=== PATIENT | male | born 1980 | race Caucasian/White ===

== ENCOUNTER 2025-02-07 16:35 | Inpatient (IN) | payer BC ==
[2025-02-07 17:09] LABS: BASOPHILS ABSOLUTE AUTO 0.2 x10-3/uL (0.0-0.3); BASOPHILS PERCENT AUTO 1.5 % (0.3-3.8); EOSINOPHILS ABSOLUTE AUTO 0.3 x10-3/uL (0.0-0.6); EOSINOPHILS PERCENT AUTO 2.7 % (0.1-6.8); LYMPHOCYTES ABSOLUTE AUTO 2.8 x10-3/uL (0.5-4.5); LYMPHOCYTES PERCENT AUTO 23.6 % (15.8-45.3); MEAN PLATELET VOLUME 8.2 fL (6.7-11.0); MONOCYTES ABSOLUTE AUTO 0.6 x10-3/uL (0.0-1.2); MONOCYTES PERCENT AUTO 5.0 % (5.5-15.2); NEUTROPHILS ABSOLUTE AUTO 7.9 x10-3/uL (1.7-6.9); NEUTROPHILS PERCENT AUTO 67.2 % (40.3-71.8); PLATELET COUNT,PLT 410 x10(3)uL (117-477); RED BLOOD CELL COUNT 4.90 x10(6)uL (3.90-5.90); RED CELL DISTRIBUTION WIDTH 14.7 % (12.4-15.0); WHITE BLOOD CELL COUNT,WBC 11.7 x10-3/uL (3.2-10.1)
[2025-02-07] MEDS: Sodium Chloride 0.9% 10 ML Syringe FLUSH PRN (17:14)
[2025-02-07 17:15] LABS: BLOOD UREA NITROGEN,BUN 24 mg/dL (7-18); CARBON DIOXIDE,CO2 26 mmol/L (21-32); CHLORIDE,CL 104 mmol/L (100-110); CREATININE 1.2 mg/dL (0.70-1.30); EST CRCL DRUG DOSING (CG) 81.11 mL/min; ESTIMATED GFR 76 mL/min (>60); GLUCOSE RANDOM 94 mg/dL (80-116); POTASSIUM,K 3.7 mmol/L (3.5-5.3); SODIUM,NA 140 mmol/L (135-145)
[2025-02-07 17:22] LABS: A/G RATIO 1.2; ALANINE AMINOTRANSFERASE,ALT 36 U/L (12-36); ASPARTATE AMNIOTRANSFERASE,AST 23 IU/L (5-25); BILIRUBIN TOTAL 0.6 mg/dL (0.1-1.3); D-DIMER QUANTITATIVE 1.29 mg/LFEU (0.0-0.59); INR 0.89 (1.00-1.24); PROTEIN TOTAL,TP 6.9 g/dL (6.0-8.0); PTT,PARTIAL THROMBOPLSTIN TIME 27.2 SECONDS (24.4-33.2)
[2025-02-07] MEDS: methylPREDNISolone Sodium Succinate 125 MG/2 ML SDV IVPUSH ONE (17:58)
[2025-02-07] MEDS: LORazepam 2 MG/ML SDV IVPUSH STA ×2 (18:08→20:06)
[2025-02-07] MEDS: Iopamidol 755 Mg/ML 100 ML Bottle IV SCH (18:41)
[2025-02-07] MEDS: Furosemide 40 MG/4 ML VIAL IVPUSH ONE (19:52)
[2025-02-07] MEDS: hydrALAZINE 20 MG/ML SDV IVPUSH STA (19:54)
[2025-02-07] MEDS ORDERED: Ondansetron 4 MG/2 ML SDV IV PRN (22:53)
[2025-02-07] MEDS ORDERED: Sennosides/Docusate Sodium 50-8.6 MG Tab PO PRN (22:53)
[2025-02-07] MEDS ORDERED: LORazepam 2 MG/ML SDV IV PRN (23:05)
[2025-02-07] MEDS: PHENobarbital Sodium 65 MG/ML SDV IVPUSH ONE (23:46)
[2025-02-08 01:10] LABS: BLOOD UREA NITROGEN,BUN 23 mg/dL (7-18); CARBON DIOXIDE,CO2 23 mmol/L (21-32); CHLORIDE,CL 100 mmol/L (100-110); CREATININE 1.4 mg/dL (0.70-1.30); EST CRCL DRUG DOSING (CG) 69.52 mL/min; ESTIMATED GFR 64 mL/min (>60); GLUCOSE RANDOM 170 mg/dL (80-116); POTASSIUM,K 3.4 mmol/L (3.5-5.3); SODIUM,NA 138 mmol/L (135-145)
[2025-02-08] MEDS: Potassium Chloride 20 MEQ Tab.ER PO STA (03:13)
[2025-02-08] MEDS: Potassium Chloride 20 MEQ Tab.ER PO ONE (05:21)
[2025-02-08 07:13] LABS: MEAN PLATELET VOLUME 7.8 fL (6.7-11.0); PLATELET COUNT,PLT 451 x10(3)uL (117-477); RED BLOOD CELL COUNT 5.16 x10(6)uL (3.90-5.90); RED CELL DISTRIBUTION WIDTH 14.3 % (12.4-15.0); WHITE BLOOD CELL COUNT,WBC 11.9 x10-3/uL (3.2-10.1)
[2025-02-08 07:16] LABS: BLOOD UREA NITROGEN,BUN 27 mg/dL (7-18); CARBON DIOXIDE,CO2 24 mmol/L (21-32); CHLORIDE,CL 101 mmol/L (100-110); CREATININE 1.4 mg/dL (0.70-1.30); EST CRCL DRUG DOSING (CG) 69.52 mL/min; ESTIMATED GFR 64 mL/min (>60); GLUCOSE RANDOM 141 mg/dL (80-116); POTASSIUM,K 4.6 mmol/L (3.5-5.3); SODIUM,NA 137 mmol/L (135-145)
[2025-02-08 07:21] LABS: A/G RATIO 1.1; ALANINE AMINOTRANSFERASE,ALT 34 U/L (12-36); ASPARTATE AMNIOTRANSFERASE,AST 22 IU/L (5-25); BILIRUBIN TOTAL 0.7 mg/dL (0.1-1.3); PROTEIN TOTAL,TP 7.2 g/dL (6.0-8.0)
[2025-02-08 07:32] LABS: LYMPHOCYTES PERCENT MAN 7 % (13-37); MONOCYTES PERCENT MAN 2 % (4-12); SEG NEUTROPHILS PERCENT MAN 91 % (46-82)
[2025-02-08] MEDS ORDERED: hydrALAZINE 20 MG/ML SDV IVPUSH PRN (11:47)
[2025-02-08] MEDS: Furosemide 40 MG/4 ML VIAL IVPUSH SCH (12:58)
[2025-02-08] MEDS: methylPREDNISolone Sodium Succinate 40 MG/1 ML SDV IVPUSH SCH (12:59)
[2025-02-08 17:23] LABS: POTASSIUM,K 3.9 mmol/L (3.5-5.3)
[2025-02-09 06:41] LABS: MEAN PLATELET VOLUME 8.0 fL (6.7-11.0); PLATELET COUNT,PLT 430 x10(3)uL (117-477); RED BLOOD CELL COUNT 4.86 x10(6)uL (3.90-5.90); RED CELL DISTRIBUTION WIDTH 14.4 % (12.4-15.0); WHITE BLOOD CELL COUNT,WBC 14.2 x10-3/uL (3.2-10.1)
[2025-02-09 06:51] LABS: BLOOD UREA NITROGEN,BUN 38 mg/dL (7-18); CARBON DIOXIDE,CO2 27 mmol/L (21-32); CHLORIDE,CL 102 mmol/L (100-110); CREATININE 1.6 mg/dL (0.70-1.30); EST CRCL DRUG DOSING (CG) 60.83 mL/min; ESTIMATED GFR 54 mL/min (>60); GLUCOSE RANDOM 153 mg/dL (80-116); POTASSIUM,K 4.3 mmol/L (3.5-5.3); SODIUM,NA 139 mmol/L (135-145)
[2025-02-09 06:54] LABS: LYMPHOCYTES PERCENT MAN 10 % (13-37); MONOCYTES PERCENT MAN 2 % (4-12); SEG NEUTROPHILS PERCENT MAN 88 % (46-82)
[2025-02-11 16:11] LABS: METANEPHRINE 0.13 nmol/L (0.00-0.49); NORMETANEPHRINE 2.13 nmol/L (0.00-0.89)
== END 2025-02-09 14:00 | DRG 194 ==
LOC: FB.ED 16:35 → FB.MS 22:54
PROVIDERS: ADMIT Emergency Medicine; ATTEND Internal Medicine
PROC: 3E0333Z Introduction of Anti-inflammatory into Peripheral Vein, Percutaneous Approach (ICD-10-PCS; principal; 2025-02-08)
DX: I11.0 Hypertensive heart disease with heart failure (principal); J96.01 Acute respiratory failure with hypoxia; J44.1 Chronic obstructive pulmonary disease with (acute) exacerbation; I50.9 Heart failure, unspecified; F17.210 Nicotine dependence, cigarettes, uncomplicated; I16.1 Hypertensive emergency; F10.139 Alcohol abuse with withdrawal, unspecified; M47.816 Spondylosis without myelopathy or radiculopathy, lumbar region; M48.061 Spinal stenosis, lumbar region without neurogenic claudication; Z86.16 Personal history of COVID-19
CPT/HCPCS: 36415; 70450; 71275; 72131; 80048; 80053; 83735; 83835; 83880; 84132; 84484; 85025; 85379; 85610; 85730; 87040; 93005; 93010; 93306; 93970; 93970-26; 94150; 94640; 96374; 96375; 96376; 99223; 99238; 99285; 99285-25; A9270-GY; J0360; J1650; J1920; J1938; J2060; J2560; J2919; J3360; J7030; Q9967; U0002